=== PATIENT | female | born 1995 | race Caucasian/White ===

== ENCOUNTER 2020-12-11 10:48 | Outpatient (RCR) | payer OTHER, SELFPAY ==
[2020-12-11 12:31] LABS: Hematocrit 35.2 % (37.0-47.0); Hemoglobin 11.7 g/dL (12.0-15.0)
[2020-12-11 12:42] LABS: Glucose 1 Hour PP 50gm Dose 97 mg/dL
[2020-12-11 13:23] LABS: HIV 1/2 Ab P24 Ag Result Negative (Negative)
[2020-12-14] MEDS: RHO(D) IMMUNE GLOBULIN 300 MCG SYRINGE IM (07:30)
[2020-12-14 09:12] LABS: Rapid Plasma Reagin Non-Reactive (NonReactive)
== END 2021-03-11 23:59 | disposition home or self-care (01) ==
LOC: ANHLAB 10:48
PROVIDERS: PCP Emergency Medicine; Visit Provider Obstetrics & Gynecology
DX: Z29.13 Encounter for prophylactic Rho(D) immune globulin (principal); Z11.4 Encounter for screening for human immunodeficiency virus [HIV]; O36.0130 Maternal care for anti-D [Rh] antibodies, third trimester, not applicable or unspecified; Z3A.00 Weeks of gestation of pregnancy not specified
CPT/HCPCS: 36415; 82947; 85014; 85018; 85461; 86592; 86703; 90384; 96372; G0432; J2790

== ENCOUNTER 2021-02-26 04:12 | Inpatient (IN) | payer OTHER, SELFPAY ==
[2021-02-26] VITALS (19 sets, daily range): BP systolic 106–145; BP diastolic 58–108; PULSE 48–96; RESP 16; TEMP 36.6–36.9; O2SAT 98–100; BMI 32.5
[2021-02-26] MEDS: LACTATED RINGERS 1,000 ML 125 ML IV CONT (04:39)
--- NOTE | 2021-02-26 04:44 | LDADM ---
This patient, Jaqueline Claudio, was admitted to Labor/Delivery/Recovery 106 on 02/26/21 at 04:12. Plans for labor, pain management and were discussed with patient. Patient/family oriented to hospital policies and general routines including ID bracelet, bed and alarms, visiting hours, pain management, procedures, bathroom and other care routines, personal items, smoking policy, room service/diet and guest tray routines, infant security routines, and visiting hours. Patient/Family are encouraged to report perceived risks to care and to ask questions if they do not understand what they are told or what they should do. See OBIX for further documentation.
[2021-02-26 04:48] LABS: Basophils Percent Auto 0.2 % (0.2-1.2); Eosinophils Absolute Auto 0.1 K/mm3 (0-0.3); Eosinophils Percent Auto 0.4 % (0-4.4); Hematocrit 37.1 % (37.0-47.0); Hemoglobin 12.3 g/dL (12.0-15.0); Immature Granulocyte Absolute 0.17 K/mm3 (0.00-0.031); Immature Granulocyte Percent A 1.1 % (0-0.5); Lymphocytes Absolute Auto 2.72 K/mm3 (0.9-3.2); Lymphocytes Percent Auto 17.2 % (18.3-44.2); Mean Corpuscular HGB Conc 33.2 g/dl (32-36); Mean Corpuscular Hemoglobin 29.5 pg (26-34); Mean Platelet Volume 10.3 fl (7.4-10.4); Monocytes Absolute Auto 1.4 K/mm3 (0.1-0.6); Monocytes Percent Auto 8.6 % (2.6-8.5); Neutrophils Absolute Auto 11.5 K/mm3 (1.3-6.7); Neutrophils Percent Auto 72.5 % (45.5-73.1); Platelet Count Result 309 k/mm3 (150-375); Red Blood Count 4.17 M/mm3 (4.2-5.4); Red Cell Distribution Width 13.7 % (11.5-14.5); White Blood Count 15.9 K/mm3 (4.5-10.0)
--- NOTE | 2021-02-26 05:38 | P.PCNOB_ITS ---
OB - Delivery Note Procedure Delivery date: 02/26/21 Procedure: vaginal delivery Intrapartal events: None Induction method: none Delivery monitor: external FHT and external uterine Laceration Description: None Specimen: Yes Anesthesia type: None Disposition: other () Baby Date of : 02/26/21 Time of : 05:26 Weeks of gestation at delivery: 39 Infant gender: Male Weight (pounds): 7 Weight (ounces): 13 presentation: vertex position: Left Occiput Anterior Placenta delivery description: Spontaneous cord vessel description: 3 Vessels and Clamped/Cut score one minute: 8 score five minutes: 9 Narrative: meconium fluid, baby handed off to driller multiple spindle for suctioning, mom and baby in stable condition
--- NOTE | 2021-02-26 05:38 | WPDOBADMIT ---
Obstetrics - Admit Note Admission Note: record reviewed. No pertinent additions to the history and/or any subsequent changes in the physical findings that are not consistent with the expected course of the were found. Pt admitted in labor, ruptured in hospital, meconium fluid, otherwise healthy Additions to the history and/or subsequent changes in the physical findings follow. None.
[2021-02-26 05:42] LABS: HIV 1/2 Ab P24 Ag Result Negative (Negative)
[2021-02-26] MEDS: OXYTOCIN 30 UNITS/NS 500 ML 30 UNITS/500 ML BAG 125 UNITS IV CONT (06:03)
[2021-02-26 06:17] LABS: Amphetamine Screen Urine Negative (Negative); Barbiturate Screen Urine Negative (Negative); Benzodiazepines Screen Urine Negative (Negative); Cannabinoid Screen Urine Positive (Negative); Cocaine Screen Urine Negative (Negative); Methadone Screen Urine Negative (Negative); Opiate Screen Urine Negative (Negative); Phencyclidine Screen Urine Negative (Negative)
[2021-02-26] MEDS: ACETAMINOPHEN 325 MG TABLET 650 MG PO (06:32)
[2021-02-26] MEDS: BENZOCAINE 20% AER SPR (*SP) 56 GM CAN 1 SPRAY TOPICAL (07:25)
[2021-02-26] MEDS: WITCH HAZEL 40 PADS 1 PAD TOPICAL (07:25)
--- NOTE | 2021-02-26 14:09 | PC.NURSE ---
0840-Patient transferred to post room #285 via wheelchair. Support person present. Oriented to unit, room, information board, rooming in, admission packet and security measures. Patient verbalizes understanding.
[2021-02-26 14:14] LABS: Rapid Plasma Reagin Non-Reactive (NonReactive)
[2021-02-27 00:15] VITALS: BP 121/75; PULSE 67; RESP 14; TEMP 36.7; O2SAT 99
[2021-02-27 04:25] VITALS: BP 118/72; PULSE 72; RESP 16; TEMP 36.7; O2SAT 100
[2021-02-27 05:32] LABS: Hematocrit 35.4 % (37.0-47.0); Hemoglobin 11.4 g/dL (12.0-15.0)
[2021-02-27 08:50] VITALS: BP 100/62; PULSE 75; RESP 16
[2021-02-27] MEDS: RHO(D) IMMUNE GLOBULIN 300 MCG/2 ML SYRINGE IM (10:09)
--- NOTE | 2021-02-27 12:18 | PM.OBPNVD ---
OB - PN: Subj Subjective Date/time seen: 02/27/21 12:18 Patient comments: no complaints, pain well controlled, incisional pain, tolerating diet and flatus present OB - PN: Obj Data Labs CBC & Chem 7: 02/27/21 04:32 Labs: Laboratory Results - last 24 hr 02/26/21 02/27/21 02/27/21 04:42 04:32 04:32 Hgb 11.4 L Hct 35.4 L RPR Non-reactive Blood Type A Negative Antibody Screen TNP Screen Negative Baby's Blood Type A pos Baby's DANIELLE Negative Doses of RhIg Required 1 OB - PN A/P Plan day: 1 Plan: routine care and discharge home Comments: No problems, routine care Time Spent With Patient Time: Total time spent is greater than 50% in coordination of care (as documented) at patient's floor/unit and/or counseling patient: Exam Const: General: comfortable, no acute distress and alert Resp: Effort & Inspection: normal respiratory effort Auscultation: no crackles, no rales and no rhonchi Cardio: Rate: regular rate Heart sounds: no click, no murmurs and no rubs GI: Inspection: non-distended GI Palp: No Tenderness to palpation present (GI) Auscultation: normal bowel sounds Other: Incision - CDI Extrem: General: normal to inspection, no pedal edema and no calf tenderness
--- NOTE | 2021-02-27 12:19 | PM.OBDSVD ---
DS: Admitting Diagnosis Admitting Diagnosis Admitting Diagnosis: term DS: Discharge Diagnosis Discharge Diagnosis (1) Term delivered: Code(s): O80 - Encounter for full-term uncomplicated delivery Status: Acute OB - DS: Summary OB Procedures : None OB Procedures Intrapartum: Spontaneous Vag Delivery OB Procedures: : None Peripartum Data Delivery Method: Natural Vaginal Time Spent with Patient Time attestation: Total time spent providing and/or coordinating discharge services: DS: Data Data Completed and Pending Pending studies at discharge: Pending at discharge 02/26/21 05:31 Surgical [PTH] Routine Labs on day of discharge: Labs from last 24 hours 02/27/21 02/27/21 02/26/21 04:32 04:32 04:42 Hgb 11.4 L Hct 35.4 L RPR Non-reactive Blood Type A Negative Antibody Screen TNP Screen Negative Baby's Blood Type A pos Baby's DANIELLE Negative Doses of RhIg Required 1 Discharge Plan Discharge Discharging Clinician: Kyleigh Gordillo Patient Disposition: Home, Self-Care Activity: pelvic rest Diet: regular Patient Instructions: Antibiotic Form, How to Stop Smoking (DC) Stand Alone Forms: General Discharge Information Follow-up/Referrals: Kyleigh Gordillo MD [Physician] - Discharge Medications: Continued sertraline 50 mg tablet 50 mg PO QPM RF: 0 1 tablet PO QAM RF: 0 Date of admission: 02/26/21 04:12 Primary Care Provider: Sven Arreola Admitting Provider: Kyleigh Gordillo Attending physician on admission: Kyleigh Gordillo Condition: Stable
--- NOTE | 2021-02-27 12:30 | PC.NURSE ---
Patient instructed to view the discharge video Mother & Baby Care, The First Two Weeks online. Patient was given the opportunity and encouraged to ask questions. Patient verbalized understanding of information shared and has been given the mother/baby guide for home reference.
[2021-03-01 09:31] VITALS: BP 116/72; PULSE 72; RESP 20; TEMP 36.7; O2SAT 100
== END 2021-02-27 13:50 | disposition home or self-care (01) | DRG 560 ==
LOC: ANHLDR 04:35 → ANHOB2 09:01
PROVIDERS: Advanced Practice Midwife; Admitting Provider Obstetrics & Gynecology; PCP Emergency Medicine; Visit Provider Obstetrics & Gynecology
DX: O77.0 Labor and delivery complicated by meconium in amniotic fluid (principal); Z3A.39 39 weeks gestation of pregnancy; Z37.0 Single live birth
CPT/HCPCS: 36415; 80307; 85014; 85018; 85025; 85461; 86592; 86703; 86850; 86900; 86901; 88307; 90384; A9270; G0432; J2590; J2790; J2795; J7120